=== PATIENT | female | born 1940 | race Caucasian/White ===

== ENCOUNTER 2024-01-07 20:23 | Observation (INO) | payer MEDICARE, SELFPAY ==
[2024-01-07] VITALS (8 sets, daily range): BP systolic 119–175; BP diastolic 59–90; PULSE 68–82; RESP 13–22; TEMP 37.1; O2SAT 94–98; BMI 30.9
--- NOTE | 2024-01-07 20:35 | ED_ITS ---
<Statement entered by Tal Sen MD - 01/07/24 22:57> I was consulted by the SHAHEEN, and we discussed the complexity of the problems being addressed. I approved the treatment and management plan for this patient's care in the emergency department, thus performing a substantive portion of the medical decision making. Tal Sen MD, SIOBHAN, FACEP Discharge Plan Disposition Chief Complaint: Syncope Referrals Follow up/Referrals: Nereyda Cantu [Primary Care Provider] - See instructions Clinical Impressions Clinical Impression: Syncope and collapse, Acute nontraumatic kidney injury Instructions Patient Instructions: DI for Syncope in Adults (Fainting), DI for Syncope in Children (Fainting) Discharge ED Provider: Tal Sen General Adult HPI <LUCAS Yang - Last Filed: 01/07/24 21:40> General Chief complaint: Syncope Stated complaint: syncope while at [facility] Time Seen by Provider: 01/07/24 20:35 History of Present Illness HPI narrative: Patient presents for evaluation of a witnessed syncopal event. Patient was sitting at the [facility] in the sun since 430 this afternoon. She states that she felt like she knew she got too hot and felt very lightheaded walking back to her car. That is the last thing that she remembers she did have a witnessed syncopal event by several bystanders. Patient's temperature was 99 on EMS arrival at the scene. She was packed in ice. She came to fairly readily. She denies currently chest pain fever chills hemoptysis hematochezia melena nausea vomiting diarrhea pain anywhere denies striking her head and complains of no headache. Related Data Allergies Allergy/AdvReac Type Severity Reaction Status Date / Time No Known Allergies Allergy Verified 01/07/24 21:00 PFS <LUCAS Yang - Last Filed: 01/07/24 21:40> [facility] Disclaimer: The information contained in this section may have been updated after the patient was seen, as this information can be updated by other users. Social History Smoking Status: Never smoker alcohol intake: never current occupational status: retired Travel in the last 8 weeks: None <LUCAS Yang Last Filed: 01/07/24 21:40> ROS Obtained: Yes Systems reviewed as appropriate & no additional complaints except as documented Physical Exam <LUCAS Yang Last Filed: 01/07/24 21:40> General General appearance: alert and in no apparent distress Head Head exam: atraumatic and normal inspection Eye Eye exam: Present normal appearance, PERRL and EOMI ENT ENT exam: Present normal exam, normal oropharynx and mucous membranes dry Neck Neck exam: Present normal inspection and full ROM; Absent lymphadenopathy Chest Chest inspection: Present normal inspection and symmetric chest wall rise; Absent tenderness Respiratory Respiratory exam: Present normal lung sounds bilaterally; Absent respiratory distress, wheezes, stridor or accessory muscle use Cardiovascular Cardiovascular exam: Present regular rate, normal rhythm, normal heart sounds, +S1 and +S2 Abdominal Exam Abdominal exam: Present soft and normal bowel sounds; Absent tenderness Extremities Exam Extremities exam: Present normal inspection and full ROM; Absent tenderness Back Exam Back exam: Present normal inspection and full ROM; Absent tenderness Neurological Exam Neurological exam: Present alert, oriented X3 and CN II-XII intact Psychiatric Psychiatric exam: Present normal affect and normal mood Skin Skin exam: Present warm, dry and normal color Medical Decision Making <LUCAS Yang - Last Filed: 01/07/24 21:40> Medical Records Medical records reviewed: Yes I reviewed the patient's medical records. Jr Inquiry Pt receiving controlled substance: No Vital Signs: 01/07/24 20:35 Temperature 98.7 F Temperature Source Oral Pulse Rate [Left Radial] 80 Respiratory Rate 18 Blood Pressure [Right Arm] 124/62 Blood Pressure Mean [Right Arm] 82 02 Sat by Pulse Oximetry 95 Oxygen Delivery Method Room Air Lab Data Lab results reviewed: Yes I reviewed the patient's lab results. Lab Results 01/07/24 20:03: WBC 13.9 H, RBC 4.21, Hgb 12.8, Hct 40.3, MCV 95.6, MCH 30.5, MCHC 31.9, RDW 14.4, Plt Count 534 H, MPV 7.4, Neut % (Auto) 71.4, Lymph % (Auto) 19.9, [place] % (Auto) 6.0, Eos % (Auto) 1.8, Baso % (Auto) 0.9, Neut # (Auto) 10.0 H, Lymph # (Auto) 2.8, [place] # (Auto) 0.8, Eos # (Auto) 0.3, Baso # (Auto) 0.1, Sodium 138, Potassium 4.0, Chloride 103, Carbon Dioxide 23, Anion Gap 16.0 H, BUN 28 H, Creatinine 1.80 H, Estimated Creat Clear 32, Estimated GFR 27 L, Est GFR ( Amer) 33 L, Glucose 132 H, Calcium 9.7, Total Bilirubin 0.3, AST 33, ALT 33, Alkaline Phosphatase 117, Troponin I < 0.01, Total Protein 8.4 H, Albumin 4.7, Globulin 3.7 H, Albumin/Globulin Ratio 1.3 01/07/24 20:03 01/07/24 20:03 Orders (Tests/Meds): ED MEDICATIONS Generic Name Dose Route Start Last Admin Trade Name Freq PRN Reason Stop Dose Admin Lactated Ringer's 1,000 mls @ 999 mls/hr 01/07/24 20:39 01/07/24 21:04 Lactated Ringer's 1000 Ml Bag IV 01/07/24 21:39 999 mls/hr .Q1H1M ONE Administration ORDERS Category Date Time Status CBC w/Auto Diff [Complete Blood Count Auto Diff] Stat Lab 01/07/24 20:03 Completed CMP [Comprehensive Metabolic Panel] Stat Lab 01/07/24 20:03 Completed Trop I [Troponin I] Stat Lab 01/07/24 20:03 Completed Troponin I Q3H Lab 01/07/24 23:45 Ordered Troponin I Q3H Lab 01/08/24 02:45 Ordered Medical Decision Narrative: In summary patient is a 83-year-old female who presents to the emergency department for evaluation of syncope and collapse. Patient is hemodynamically stable upon arrival, with a temperature of 98.7. Physical exam is unremarkable and nonfocal including [place] Coma Score 15 normal heart sounds normal breath sounds normal sinus rhythm on the bedside monitor.. Differential diagnosis includes heat exhaustion versus vasovagal syncope versus ACS versus stroke etc. Initial workup will be conducted with hematologic labs twelve-lead EKG serial troponin. Initial interventions include crystalloid bolus cardiac monitoring and pulse oximetry. Initial workup reviewed by me shows patient has an acute kidney injury with a GFR 27 and a creatinine of 1.8 and we are unsure of her baseline as we have no previous labs to compare to. Troponin is undetectable and patient remains with a [place] coma score 15 and asymptomatic currently. Upon repeat evaluation patient reports feeling no different and feels well currently. Given this I had a interact discussion with hospital medicine regarding patient management and she has been admitted for further evaluation and care. Discussed with the patient and she is agreeable to admission. <Tal Sen MD - Last Filed: 01/07/24 21:02> Vital Signs: 01/07/24 20:35 Temperature 98.7 F Temperature Source Oral Pulse Rate [Left Radial] 80 Respiratory Rate 18 Blood Pressure [Right Arm] 124/62 Blood Pressure Mean [Right Arm] 82 02 Sat by Pulse Oximetry 95 Oxygen Delivery Method Room Air Lab Data Lab Results 01/07/24 20:03: WBC 13.9 H, RBC 4.21, Hgb 12.8, Hct 40.3, MCV 95.6, MCH 30.5, MCHC 31.9, RDW 14.4, Plt Count 534 H, MPV 7.4, Neut % (Auto) 71.4, Lymph % (Auto) 19.9, [place] % (Auto) 6.0, Eos % (Auto) 1.8, Baso % (Auto) 0.9, Neut # (Auto) 10.0 H, Lymph # (Auto) 2.8, [place] # (Auto) 0.8, Eos # (Auto) 0.3, Baso # (Auto) 0.1, Sodium 138, Potassium 4.0, Chloride 103, Carbon Dioxide 23, Anion Gap 16.0 H, BUN 28 H, Creatinine 1.80 H, Estimated Creat Clear 32, Estimated GFR 27 L, Est GFR ( Amer) 33 L, Glucose 132 H, Calcium 9.7, Total Bilirubin 0.3, AST 33, ALT 33, Alkaline Phosphatase 117, Troponin I < 0.01, Total Protein 8.4 H, Albumin 4.7, Globulin 3.7 H, Albumin/Globulin Ratio 1.3 Orders (Tests/Meds): ED MEDICATIONS Generic Name Dose Route Start Last Admin Trade Name Freq PRN Reason Stop Dose Admin Lactated Ringer's 1,000 mls @ 999 mls/hr 01/07/24 20:39 01/07/24 21:04 Lactated Ringer's 1000 Ml Bag IV 01/07/24 21:39 999 mls/hr .Q1H1M ONE Administration ORDERS Category Date Time Status CBC w/Auto Diff [Complete Blood Count Auto Diff] Stat Lab 01/07/24 20:03 Completed CMP [Comprehensive Metabolic Panel] Stat Lab 01/07/24 20:03 Completed Trop I [Troponin I] Stat Lab 01/07/24 20:03 Completed Troponin I Q3H Lab 01/07/24 23:45 Ordered Troponin I Q3H Lab 01/08/24 02:45 Ordered ECG Data Tracing #1: I reviewed this ECG and interpreted as documented below: Ventricular rate of 74 no acute ischemic changes noted normal axis no conduction abnormalities Critical Care <LUCAS Yang - Last Filed: 01/07/24 21:40> Critical Care Time Critical Care Time: No
[2024-01-07 20:47] LABS: Basophils # 0.1 K/mm3 (0-0.2); Basophils % 0.9 % (0.1-2.0); Eosinophils # 0.3 K/mm3 (0.0-0.4); Eosinophils % 1.8 % (0.1-12.0); Hematocrit 40.3 % (37.0-47.0); Hemoglobin 12.8 g/dL (12.2-16.2); Lymphocytes # 2.8 K/mm3 (0.7-4.5); Lymphocytes % 19.9 % (10-50); Mean Corpuscular HGB Conc 31.9 g/dL (31.8-35.4); Mean Corpuscular Hemoglobin 30.5 pg (27.0-31.2); Mean Corpuscular Volume 95.6 fl (81-99); Mean Platelet Volume 7.4 fl (7.4-10.4); Monocytes # 0.8 K/mm3 (0.1-1.0); Neutrophils % 71.4 % (37.0-80.0); Platelet Count 534 K/mm3 (142-424); Red Blood Count 4.21 M/mm3 (4.20-5.40); Red Cell Distribution Width 14.4 % (11.5-17.5); White Blood Count 13.9 K/mm3 (4.8-10.8)
[2024-01-07 20:48] LABS: Chloride 103 mmol/L (98-107); Sodium 138 mmol/L (136-145)
[2024-01-07 20:51] LABS: Alanine Aminotransferase 33 U/L (12-78); Albumin Level 4.7 g/dl (3.5-5.0); Albumin/Globulin Ratio 1.3 (1.1-1.8); Alkaline Phosphatase 117 U/L (38-126); Aspartate Amino Transferase 33 U/L (14-36); Bilirubin,Total 0.3 mg/dl (0.2-1.3); Blood Urea Nitrogen 28 mg/dl (7-17); Carbon Dioxide 23 mmol/L (22.0-30.0); Creatinine Clearance Estimated 32 mL/min (50-200); Estimated Glomerular Filt Rate 27 ml/min (>60); GFR (African American) 33 ML/MIN (>60); Globulin 3.7 g/dL (1.3-3.2); Total Protein,Serum 8.4 g/dl (6.3-8.2)
[2024-01-07 20:52] LABS: Calcium 9.7 mg/dl (8.4-10.2); Glucose 132 mg/dl (74-100)
[2024-01-07] MEDS: LACTATED RINGERS 1000ML 1,000 ML 999 ML IV (21:04)
[2024-01-07 21:06] LABS: Troponin I < 0.01 ng/ml (0.00-0.034)
--- NOTE | 2024-01-07 21:56 | PC.NURSE ---
nurse to nurse report called to Lakisha
--- NOTE | 2024-01-07 22:12 | EXP.HP ---
History of Present Illness *Admission Date: 01/07/24 *Reason for visit:: syncope *History of present illness: This is a 83yo F with PMHx of HTN, HLD, hypothyroidism, overactive bladder with frequent UTI presented to ED for evaluation of a witnessed syncopal event. [place] 430 this [place]. She states that she felt like she knew she got too hot and felt very lightheaded walking back to her car. That is the last thing that she remembers she did have a witnessed syncopal event by several bystanders. Patient's temperature was 99 on EMS arrival at the scene. stated that they provide ice and came to fairly readily. admitted not drinking enough water. She denies currently chest pain fever chills hemoptysis hematochezia melena nausea vomiting diarrhea pain anywhere denies striking her head and complains of no headache. Admitted for further monitoring and work up. [facility] Disclaimer: The information contained in this section may have been updated after the patient was seen, as this information can be updated by other users. Surgical History Intracranial shunt History of lumpectomy of right breast Family History Other Lung cancer Social History Smoking Status: Never smoker alcohol intake: never current occupational status: retired Travel in the last 8 weeks: None Review of Systems Review of Systems Review of systems:: pertinent systems reviewed and negative unless documented below Meds Home Medications and Allergies Home Medications Medication Instructions Recorded Confirmed Type imipramine HCl 25 mg tablet 25 mg PO HS 01/07/24 01/08/24 History levothyroxine 100 mcg tablet 100 mcg PO DAILY 01/07/24 01/07/24 History lisinopril 10 mg tablet 10 mg PO DAILY 01/07/24 01/07/24 History methenamine hippurate 1 gram tablet 0.5 g PO TID 01/07/24 01/08/24 History oxybutynin chloride 15 mg 15 mg PO HS 01/07/24 01/08/24 History tablet,extended release 24 hr pravastatin 20 mg tablet 20 mg PO HS 01/07/24 01/08/24 History triamterene 37.5 1 cap PO Q48H 01/07/24 01/08/24 History mg-hydrochlorothiazide 25 mg capsule New Prescriptions to Start Prescriptions: Allergies Allergy/AdvReac Type Severity Reaction Status Date / Time No Known Allergies Allergy Verified 01/07/24 21:00 Exam Data for Last 24 hours Vital signs and Labs for Last 24 Hours: Temp Pulse Resp BP Pulse Ox O2 Del Method 98.7 F 68 17 130/65 97 Room Air 01/07/24 21:56 01/07/24 21:56 01/07/24 21:56 01/07/24 21:56 01/07/24 21:30 01/07/24 21:56 Laboratory Results - last 24 hr 01/07/24 20:03: WBC 13.9 H, RBC 4.21, Hgb 12.8, Hct 40.3, MCV 95.6, MCH 30.5, MCHC 31.9, RDW 14.4, Plt Count 534 H, MPV 7.4, Neut % (Auto) 71.4, Lymph % (Auto) 19.9, [place] % (Auto) 6.0, Eos % (Auto) 1.8, Baso % (Auto) 0.9, Neut # (Auto) 10.0 H, Lymph # (Auto) 2.8, [place] # (Auto) 0.8, Eos # (Auto) 0.3, Baso # (Auto) 0.1, Sodium 138, Potassium 4.0, Chloride 103, Carbon Dioxide 23, Anion Gap 16.0 H, BUN 28 H, Creatinine 1.80 H, Estimated Creat Clear 32, Estimated GFR 27 L, Est GFR ( Amer) 33 L, Glucose 132 H, Calcium 9.7, Total Bilirubin 0.3, AST 33, ALT 33, Alkaline Phosphatase 117, Troponin I < 0.01, Total Protein 8.4 H, Albumin 4.7, Globulin 3.7 H, Albumin/Globulin Ratio 1.3 I & O for Last 24 hours: Intake & Output 01/04/24 01/05/24 01/06/24 01/07/24 23:59 23:59 23:59 23:59 Weight 81.647 kg Constitutional Constitutional: no acute distress, obese and cooperative *Routine HEENT Exam Head: Present normocephalic Eye: Present EOMI and PERRL ENT: Present mucous membranes moist *Routine Neck Exam Neck: Present supple; Absent lymphadenopathy *Routine Respiratory Exam Respiratory: Present CTA bilaterally, normal respiratory effort and symmetric chest movement *Routine Cardiovascular Exam Cardiovascular: Present RRR, Normal S1 and Normal S2 *Routine Abdominal Exam Abdominal: Present soft and normoactive bowel sounds; Absent tenderness *Routine Rectal Exam Rectal:: deferred *Routine Genitalia Exam Genitalia:: deferred *Routine Extremities Exam Extremities: Absent cyanosis, clubbing or edema *Routine Skin Exam Skin: Present warm; Absent rash *Routine Neurological Exam Neurological: Present alert, oriented X3, normal reflexes, moving all extremities and normal speech Routine Psychiatric Exam Psychiatric: Present normal thought process and good insight H&P: Result Imaging and Cardiology EKG: Status: image reviewed by me, Preliminary report and final report Assessment and Plan *Assessment and plan (1) Syncope and collapse: Status: Acute Category: Medical Code(s): R55 - Syncope and collapse (2) Acute nontraumatic kidney injury: Status: Acute Category: Medical Code(s): N17.9 - Acute kidney failure, unspecified (3) Hypertension: Status: Acute Qualifiers: Hypertension type: unspecified Qualified Code(s): I10 - Essential (primary) hypertension Category: Medical Code(s): I10 - Essential (primary) hypertension (4) HLD (hyperlipidemia): Status: Acute Qualifiers: Hyperlipidemia type: unspecified Qualified Code(s): E78.5 - Hyperlipidemia, unspecified Category: Medical Code(s): E78.5 - Hyperlipidemia, unspecified (5) Hypothyroidism: Status: Acute Qualifiers: Hypothyroidism type: unspecified Qualified Code(s): E03.9 - Hypothyroidism, unspecified Category: Medical Code(s): E03.9 - Hypothyroidism, unspecified Plan 83yo F with PMHx of HTN, HLD, hypothyroidism, overactive bladder with frequent UTI presented to ED for evaluation of a witnessed syncopal event. on arrival patient hemodinamically stable, alert and oriented. initial work up conducted. Reviewed. Patient has an acute kidney injury with a GFR 27 and a creatinine of 1.8 and, unknown her baseline, patient denied any known past history of kidney disease. Troponin is undetectable. CT was considered but deferred at ED due to lack of neurological symptoms or deficit. patient improved significantly after IV hydration. ED requested admission for further monitoring. Agreed for it. Plan: -Syncope and collapse, likely heat stroke: Condition to rule out cardiac and vasovagal syncope Acute kidney injury. Likely secondary to dehydration, prerenal azotemia Admit patient for continuous monitoring. Dispo MedSurg Continues IV hydration fluid maintenance 125 mL/h Continuous cardiac monitoring Neurological check Q4h. obtain CT of the head stat if neuro condition deteriorated Echocardiogram ordered Monitoring vital signs per unit Monitor renal function. Strict in and output Repeat labs in the morning. CMP to recheck creatinine Avoid nephrotoxic medications -Hypertension hyperlipidemia: Condition reviewed. Resume home medication On statin -Resume oxybutynin and Synthroid Hold methenamine in the setting of kidney injury obtain TSH/t4 and A1c to complete risk assessment. Lovenox for DVT prophylaxis. On Protonix for GI bleed protection Full code Rounded on patient after nurse practitioner. Personally examined and interviewed patient. Agree with exam findings and care plan as documented.
[2024-01-07] MEDS: 0.9 % SODIUM CHLORIDE 1000ML 1,000 ML 100 ML IV (22:48)
[2024-01-08] VITALS (8 sets, daily range): BP systolic 123–156; BP diastolic 58–77; PULSE 59–80; RESP 16–19; TEMP 36.5–37; O2SAT 96–98; BMI 32.4
[2024-01-08 00:12] LABS: Troponin I < 0.01 ng/ml (0.00-0.034)
[2024-01-08 03:15] LABS: Troponin I < 0.01 ng/ml (0.00-0.034)
--- NOTE | 2024-01-08 04:45 | PC.NURSE ---
Pt has rested without complaints through the night. She has been assisted to BR to void several times and denies dizziness with ambulation. IVF infusing to left AC at rate of 100/hr. Pt has also had some PO fluids during the night as well
[2024-01-08 06:17] LABS: Basophils % 0.4 % (0.1-2.0); Eosinophils # 0.2 K/mm3 (0.0-0.4); Hematocrit 35.9 % (37.0-47.0); Hemoglobin 11.6 g/dL (12.2-16.2); Lymphocytes % 19.8 % (10-50); Mean Corpuscular HGB Conc 32.2 g/dL (31.8-35.4); Mean Corpuscular Hemoglobin 30.4 pg (27.0-31.2); Mean Corpuscular Volume 94.5 fl (81-99); Mean Platelet Volume 7.7 fl (7.4-10.4); Monocytes # 0.6 K/mm3 (0.1-1.0); Monocytes % 6.2 % (1.7-9.3); Neutrophils # 7.2 K/mm3 (1.8-7.8); Neutrophils % 71.5 % (37.0-80.0); Platelet Count 363 K/mm3 (142-424); Red Cell Distribution Width 14.4 % (11.5-17.5); White Blood Count 10.1 K/mm3 (4.8-10.8)
[2024-01-08 06:28] LABS: Chloride 108 mmol/L (98-107); Potassium 3.8 mmoL/L (3.5-5.1); Sodium 138 mmol/L (136-145)
[2024-01-08 06:30] LABS: Blood Urea Nitrogen 24 mg/dl (7-17); Creatinine Clearance Estimated 50 mL/min (50-200); Estimated Glomerular Filt Rate 43 ml/min (>60); GFR (African American) 52 ML/MIN (>60)
[2024-01-08 06:31] LABS: Alanine Aminotransferase 22 U/L (12-78); Albumin Level 3.7 g/dl (3.5-5.0); Albumin/Globulin Ratio 1.2 (1.1-1.8); Alkaline Phosphatase 97 U/L (38-126); Anion Gap 7.8 mEq/L (5-15); Aspartate Amino Transferase 27 U/L (14-36); Bilirubin,Total 0.4 mg/dl (0.2-1.3); Calcium 8.7 mg/dl (8.4-10.2); Carbon Dioxide 26 mmol/L (22.0-30.0); Globulin 3.1 g/dL (1.3-3.2); Glucose 111 mg/dl (74-100); Magnesium 1.9 mg/dl (1.6-2.3); Total Protein,Serum 6.8 g/dl (6.3-8.2)
[2024-01-08 06:45] LABS: T4 (Thyroxine) 7.5 ug/dl (5.53-11.0)
--- NOTE | 2024-01-08 07:46 | HMH.PHAINT1 ---
Pharmacy Intervention Comments: HOME MEDICATION LIST VERIFIED USING LIST FROM OUTPATIENT PHARMACY
[2024-01-08] MEDS: LISINOPRIL 10MG TABLET 10 MG PO (08:26)
[2024-01-08] MEDS: PRAVASTATIN 20MG TAB 20 MG PO (08:26)
[2024-01-08] MEDS: LEVOTHYROXINE 100MCG (0.1MG) TAB 100 MCG PO (08:26)
[2024-01-08] MEDS: TRIAMTERENE PO (08:27)
[2024-01-08] MEDS: OXYBUTYNIN 5MG TAB 5 MG PO ×2 (08:27→12:54)
[2024-01-08] MEDS: PANTOPRAZOLE 40MG TABLET 40 MG PO (08:27)
[2024-01-08] MEDS: HCTZ PO (08:27)
[2024-01-08] MEDS: ENOXAPARIN 40MG/0.4ML SYRINGE 40 MG SQ (08:27)
--- NOTE | 2024-01-08 08:58 | P.DS_ITS ---
General Admission date:: 01/07/24 Discharge date: 01/08/24 HPI HPI HPI: This is a 83yo F with PMHx of HTN, HLD, hypothyroidism, overactive bladder with frequent UTI presented to ED for evaluation of a witnessed syncopal event. [place] 430 this [place]. She states that she felt like she knew she got too hot and felt very lightheaded walking back to her car. That is the last thing that she remembers she did have a witnessed syncopal event by several bystanders. Patient's temperature was 99 on EMS arrival at the scene. stated that they provide ice and came to fairly readily. admitted not drinking enough water. She denies currently chest pain fever chills hemoptysis hematochezia melena nausea vomiting diarrhea pain anywhere denies striking her head and complains of no headache. Admitted for further monitoring and work up. Hospital Course Hospital Course Hospital Course: 83yo F with PMHx of HTN, HLD, hypothyroidism, overactive bladder with frequent UTI presented to ED for evaluation of a witnessed syncopal event. on arrival patient hemodinamically stable, alert and oriented. initial work up conducted. Reviewed. Patient has an acute kidney injury with a GFR 27 and a creatinine of 1.8 and, unknown baseline, patient denied any known past history of kidney disease. Troponin is undetectable. CT was considered but deferred at ED due to lack of neurological symptoms or deficit. patient improved significantly after IV hydration. ED requested admission for further monitoring. Did well overnight. Improvement in labs by morning. Symptoms likely consistent with dehydration. Adjustments made to medications as follows. Problems addressed as follows: Syncope and collapse, likely heat stroke: Condition to rule out cardiac and vasovagal syncope Acute kidney injury. Likely secondary to dehydration, prerenal azotemia Monitored overnight on telemetry. Had no further events. Responded well to IV fluid hydration. Tolerating p.o. intake. Morning labs showed improvement in kidney function with BUN 24, creatinine 1.2. Having adequate urine output. Thyroid function normal. Echo preliminary read normal. Formal read still pending. Plan to resume home medications for blood pressure except for triamterene-HCTZ. Will hold at this time due to its potential connection with dehydration. Close follow-up with PCP for further management and discussion about medication adjustments. Baseline mentation on day of discharge. -Hypertension hyperlipidemia: Blood pressure appropriate during admission. 144/65 at time of discharge. Continue home meds except diuretics. -Resume oxybutynin and Synthroid. Thyroid function normal. Exam Data for Last 24 hours Vital signs and Labs for Last 24 Hours: Temp Pulse Resp BP Pulse Ox O2 Del Method 98.6 F 65 19 156/77 H 96 Room Air 01/08/24 07:59 01/08/24 07:59 01/08/24 07:59 01/08/24 07:59 01/08/24 07:59 01/08/24 07:59 Laboratory Results - last 24 hr 01/07/24 20:03: WBC 13.9 H, RBC 4.21, Hgb 12.8, Hct 40.3, MCV 95.6, MCH 30.5, MCHC 31.9, RDW 14.4, Plt Count 534 H, MPV 7.4, Neut % (Auto) 71.4, Lymph % (Auto) 19.9, Norman % (Auto) 6.0, Eos % (Auto) 1.8, Baso % (Auto) 0.9, Neut # (Auto) 10.0 H, Lymph # (Auto) 2.8, Norman # (Auto) 0.8, Eos # (Auto) 0.3, Baso # (Auto) 0.1, Sodium 138, Potassium 4.0, Chloride 103, Carbon Dioxide 23, Anion Gap 16.0 H, BUN 28 H, Creatinine 1.80 H, Estimated Creat Clear 32, Estimated GFR 27 L, Est GFR ( Amer) 33 L, Glucose 132 H, Calcium 9.7, Total Bilirubin 0.3, AST 33, ALT 33, Alkaline Phosphatase 117, Troponin I < 0.01, Total Protein 8.4 H, Albumin 4.7, Globulin 3.7 H, Albumin/Globulin Ratio 1.3 01/07/24 23:38: Troponin I < 0.01 01/08/24 02:45: Troponin I < 0.01 01/08/24 05:57: WBC 10.1 D, RBC 3.80 L, Hgb 11.6 L, Hct 35.9 L, MCV 94.5, MCH 30.4, MCHC 32.2, RDW 14.4, Plt Count 363 D, MPV 7.7, Neut % (Auto) 71.5, Lymph % (Auto) 19.8, Norman % (Auto) 6.2, Eos % (Auto) 2.0, Baso % (Auto) 0.4, Neut # (Auto) 7.2, Lymph # (Auto) 2.0, Norman # (Auto) 0.6, Eos # (Auto) 0.2, Baso # (Auto) 0.0, Sodium 138, Potassium 3.8, Chloride 108 H, Carbon Dioxide 26, Anion Gap 7.8, BUN 24 H, Creatinine 1.20 H D, Estimated Creat Clear 50, Estimated GFR 43 L, Est GFR ( Amer) 52 L D, Glucose 111 H, Calcium 8.7, Magnesium 1.9, Total Bilirubin 0.4, AST 27, ALT 22 D, Alkaline Phosphatase 97, Total Protein 6.8, Albumin 3.7 D, Globulin 3.1, Albumin/Globulin Ratio 1.2, Thyroxine (T4) 7.5 I & O for Last 24 hours: Intake & Output 01/05/24 01/06/24 01/07/24 01/08/24 23:59 23:59 23:59 23:59 Intake Total 740 / 740 Output Total 0 / 0 0 / 0 Balance 0 / 240 740 / 740 Weight 81.647 kg 86.228 kg Constitutional Constitutional: no acute distress and obese *Routine HEENT Exam Head: Present normocephalic Eye: Present EOMI and PERRL ENT: Present mucous membranes moist *Routine Neck Exam Neck: Present supple; Absent lymphadenopathy *Routine Respiratory Exam Respiratory: Present CTA bilaterally *Routine Cardiovascular Exam Cardiovascular: Present RRR *Routine Abdominal Exam Abdominal: Present soft and normoactive bowel sounds; Absent tenderness *Routine Rectal Exam Patient deferred: visual exam *Routine Exam Patient deferred: external exam *Routine Extremities Exam Extremities: Absent cyanosis, clubbing or edema *Routine Skin Exam Skin: Present warm; Absent rash *Routine Neurological Exam Neurological: Present alert, oriented X3 and moving all extremities; Absent altered mental status Results Data Completed and Pending Labs on day of discharge: Labs from last 24 hours 01/08/24 01/08/24 01/07/24 05:57 02:45 23:38 WBC 10.1 D RBC 3.80 L Hgb 11.6 L Hct 35.9 L MCV 94.5 MCH 30.4 MCHC 32.2 RDW 14.4 Plt Count 363 D MPV 7.7 Neut % (Auto) 71.5 Lymph % (Auto) 19.8 Norman % (Auto) 6.2 Eos % (Auto) 2.0 Baso % (Auto) 0.4 Neut # (Auto) 7.2 Lymph # (Auto) 2.0 Norman # (Auto) 0.6 Eos # (Auto) 0.2 Baso # (Auto) 0.0 Sodium 138 Potassium 3.8 Chloride 108 H Carbon Dioxide 26 Anion Gap 7.8 BUN 24 H Creatinine 1.20 H D Estimated Creat Clear 50 Estimated GFR 43 L Est GFR ( Amer) 52 L D Glucose 111 H Calcium 8.7 Magnesium 1.9 Total Bilirubin 0.4 AST 27 ALT 22 D Alkaline Phosphatase 97 Troponin I < 0.01 < 0.01 Total Protein 6.8 Albumin 3.7 D Globulin 3.1 Albumin/Globulin Ratio 1.2 Thyroxine (T4) 7.5 01/07/24 20:03 WBC 13.9 H RBC 4.21 Hgb 12.8 Hct 40.3 MCV 95.6 MCH 30.5 MCHC 31.9 RDW 14.4 Plt Count 534 H MPV 7.4 Neut % (Auto) 71.4 Lymph % (Auto) 19.9 Norman % (Auto) 6.0 Eos % (Auto) 1.8 Baso % (Auto) 0.9 Neut # (Auto) 10.0 H Lymph # (Auto) 2.8 Norman # (Auto) 0.8 Eos # (Auto) 0.3 Baso # (Auto) 0.1 Sodium 138 Potassium 4.0 Chloride 103 Carbon Dioxide 23 Anion Gap 16.0 H BUN 28 H Creatinine 1.80 H Estimated Creat Clear 32 Estimated GFR 27 L Est GFR ( Amer) 33 L Glucose 132 H Calcium 9.7 Magnesium Total Bilirubin 0.3 AST 33 ALT 33 Alkaline Phosphatase 117 Troponin I < 0.01 Total Protein 8.4 H Albumin 4.7 Globulin 3.7 H Albumin/Globulin Ratio 1.3 Thyroxine (T4) DS: Diagnosis Discharge Diagnosis (1) Dehydration: Status: Acute Code(s): E86.0 - Dehydration (2) Syncope and collapse: Status: Acute Code(s): R55 - Syncope and collapse (3) Acute nontraumatic kidney injury: Status: Acute Code(s): N17.9 - Acute kidney failure, unspecified (4) Hypertension: Status: Acute Code(s): I10 - Essential (primary) hypertension Qualifiers: Hypertension type: unspecified Qualified Code(s): I10 - Essential (primary) hypertension (5) HLD (hyperlipidemia): Status: Acute Code(s): E78.5 - Hyperlipidemia, unspecified Qualifiers: Hyperlipidemia type: unspecified Qualified Code(s): E78.5 - Hyperlipidemia, unspecified (6) Hypothyroidism: Status: Acute Code(s): E03.9 - Hypothyroidism, unspecified Qualifiers: Hypothyroidism type: unspecified Qualified Code(s): E03.9 - Hypothyroidism, unspecified Meds Home Medications and Allergies Home Medications Medication Instructions Recorded Confirmed Type imipramine HCl 25 mg tablet 25 mg PO HS 01/07/24 01/08/24 History levothyroxine 100 mcg tablet 100 mcg PO DAILY 01/07/24 01/07/24 History lisinopril 10 mg tablet 10 mg PO DAILY 01/07/24 01/07/24 History methenamine hippurate 1 gram tablet 0.5 g PO TID 01/07/24 01/08/24 History oxybutynin chloride 15 mg 15 mg PO HS 01/07/24 01/08/24 History tablet,extended release 24 hr pravastatin 20 mg tablet 20 mg PO HS 01/07/24 01/08/24 History triamterene 37.5 1 cap PO Q48H 01/07/24 01/08/24 History mg-hydrochlorothiazide 25 mg capsule New Prescriptions to Start Prescriptions: Allergies Allergy/AdvReac Type Severity Reaction Status Date / Time No Known Allergies Allergy Verified 01/07/24 21:00 Discharge Plan Disposition Patient Disposition: Home, Self-Care Condition: Fair Follow up Plan Follow up with: Nereyda Cantu [Primary Care Provider] - 1 week (please call for follow up yaima ointment. office is closed ) Prescriptions/Medication Reconciliation: Continued oxybutynin chloride 15 mg tablet extended release 24hr 15 mg PO HS levothyroxine 100 mcg tablet 100 mcg PO DAILY methenamine hippurate 1 gram tablet 0.5 g PO TID Rx Instructions: take 1/2 tablet TID lisinopril 10 mg tablet 10 mg PO DAILY pravastatin 20 mg tablet 20 mg PO HS imipramine HCl 25 mg tablet 25 mg PO HS Rx Instructions: HS Held triamterene-hydrochlorothiazid 37.5-25 mg capsule 1 cap PO Q48H Hold Instructions: pending follow-up with PCP Rx Instructions: take 1 capsule every other day Problem Reconciliation Problems Reviewed?: Yes Patient Discharge Instructions ACTIVITY: Continue current activity DIET: continue same diet Patient Instructions: Acute Kidney Injury Providers Primary Care Provider: Nereyda Cantu Admit Provider: Ceferino Gudino Attending Provider: Ceferino Gudino
[2024-01-08 10:18] LABS: Thyroid Stimulating Hormone 1.55 uIU/mL (0.465-4.68)
--- NOTE | 2024-01-08 21:00 | ECG_ITS ---
APPROVED REPORT Exam: Resting ECG HR:74 bpm ECG Measurements Heart Rate 74 AXES MO 194 P 78 QRSd 102 QRS 53 QT 420 T 58 QTc 447 Conclusion SINUS RHYTHM LOW QRS VOLTAGE IN PRECORDIAL LEADS [QRS DEFLECTION < 1.0 mV IN CHEST LEADS] BORDERLINE ECG UNCONFIRMED REPORT Electronically signed by : ABILIO RAMÍREZ, 01/08/2024 04:36:30
--- NOTE | 2024-01-08 22:13 | CA_ITS ---
APPROVED REPORT EXAM: Comprehensive 2D, Doppler, and color-flow Echocardiogram Almond Huller: Odilia Zelaya CRT Ht: 5 ft 4 in Wt: 180lbs BSA: 1.87 BP: 124/62 mmHg Indications: Syncope, Hyperlipidemia, Hypertension/HDD 2D Dimensions LA Volume 24.80 mL LA Volume Index 12.90 mL/m2 (M/F) 16-34 M-Mode Dimensions RVDd 2.83 cm (0.9-2.6) LA Diam 2.60 cm (1.9-4.0) LVDd 4.08 cm (3.5-5.7) LVDs 2.79 cm (3.5-5.7) IVSd 1.86 cm (0.6-1.1) PWd 0.75 cm (0.6-1.1) EF (Teich) 60.10% FS 31.60% EDV (Teich) 73.40 mL TAPSE 3.07 (<1.7) ESV (Teich) 29.30 mL LV Diastology E Decel Time 463 (160-240 msec) E/A Ratio 0.61 MED A' 9.40 cm/s LAT A' 11.80 cm/s Aortic Valve AI PHT 481.00 ms AO Peak GR. 8.70 mmHg Mitral Valve MV A Velocity 95.0 (40-130 cm/s) E/A Ratio 0.61 Pulmonary Valve PV Peak Velocity 102.0 (50-150 cm/s) Tricuspid Valve TR P. Velocity 128.00 cm/s RAP Estimate 10.00 mmHg RVSP 16.60 mmHg Left Ventricle The left ventricle is normal size. The left ventricular systolic function is normal. The left ventricular ejection fraction is within the normal range. There is increased LV wall thickness. Proximal septal thickening is noted. There is normal LV segmental wall motion. Transmitral Doppler flow pattern suggests impaired LV relaxation. LVEF is 55%. Right Ventricle The right ventricle is normal size. The right ventricular systolic function is normal. Atria The left atrium size is normal. The right atrium size is normal. There is no Doppler evidence of interatrial shunt. Aortic Valve The aortic valve is mildly thickened. There is no aortic valvular stenosis. Mild aortic regurgitation. Mitral Valve The mitral valve leaflets are mildly thickened. Mild mitral regurgitation. No evidence of mitral valve stenosis. Tricuspid Valve The tricuspid valve leaflets are thin and pliable. Trace tricuspid regurgitation. There is insufficient TR jet to estimate RVSP. Pulmonic Valve The pulmonary valve is normal in structure. Trace pulmonic regurgitation. Great Vessels The aortic root is normal in size. The ascending aorta is mildly dilated, measuring 3.8 cm in diameter. IVC is normal in size and collapses >50% with inspiration. Pericardium There is no pericardial effusion. Other Information Study Quality: Fair Conclusion Normal biventricular systolic function. Mild AI, mild MR. Mildly dilated ascending aorta (3.8 cm). Correlation of ascending aorta size with recent or new CTA chest is recommended. Electronically signed by : Deann Osuna MD 01/12/2024 23:28:35
--- NOTE | 2024-01-09 10:46 | SW/DCPLANNER ---
Follow up phone call: patient stated that she is feeling much better. Patient stated that she will make a follow up appointment w/ her PCP. Patient did not have any further needs/questions at this time.
== END 2024-01-08 14:57 | disposition home or self-care (01) ==
LOC: ER 21:16 → 2ND 21:58
PROVIDERS: Nurse Practitioner Family; Physician Assistant; Admitting Provider Internal Medicine Adolescent Medicine; Emergency Provider Student in an Organized Health Care Education/Training Program; PCP Family Medicine; Visit Provider Internal Medicine Adolescent Medicine
DX: N17.9 Acute kidney failure, unspecified (principal); T67.1XXA Heat syncope, initial encounter; I10 Essential (primary) hypertension; E78.5 Hyperlipidemia, unspecified; E03.9 Hypothyroidism, unspecified; E86.0 Dehydration; Z79.899 Other long term (current) drug therapy
CPT/HCPCS: 36415; 80053; 83735; 84436; 84443; 84484; 85025; 93005; 93306; 99285; G0378; J1650; J7120